=== PATIENT | female | born 1990 | race Caucasian/White ===

== ENCOUNTER 2016-12-05 18:58 | Emergency (ER) | payer OTHER ==
[~2016-12-05] VITALS: Ht 157.5 cm; Wt 93.0 kg
[~2016-12-05 18:58] MED LIST: PREN1TAB49
[2016-12-05 19:17] VITALS: Ht 157.5 cm; Wt 93.0 kg
--- NOTE | 2016-12-05 22:46 | RADRPT ---
PROCEDURE: XR Chest. CLINICAL INDICATION: Chest pain TECHNIQUE: Single frontal view of the chest was obtained. COMPARISON: None available FINDINGS: The cardiomediastinal silhouette is normal size. Pulmonary vasculature is within normal limits. Th e lungs are clear. No signs of pleural fluid or pneumothorax are seen. The osseous structures and soft tissues are unre markable. IMPRESSION: No evidence for active cardiopulmonary disease. RPTAT: HBST .Kieran Ku MD, MD Date Time Electronically viewed and signed by .Kieran Ku MD, MD on 12/05/2016 22:46 .T/
[2016-12-05] MEDS ORDERED: IBUP-1542 PO (22:56)
[2016-12-05] MEDS ORDERED: CEPH-443 PO (22:56)
--- NOTE | 2016-12-05 23:05 | ERD ---
ER Documentation Chief Complaint Date/Time DATE: 12/05/16 TIME: 23:00 Chief Complaint chest pain x 2 days on aND OFF HPI This is a 26-year-old female presents to the ER with chest pain for the last 2 days. Patient states that she does have shortness of breath. Patient states that she has some redness and swelling over her chest that is warm to the touch and painful. Has been nonexertional. It is worse whenever she touches the area. Patient denies any leg pain or leg swelling or redness. She denies any recent travel she does not take OCPs, she has not had a history of PEs or DVTs. Patient does not have any fevers or chills. She has had a stuffy nose hypertension denies of cough. ROS 12 point review of systems was done, all negative except per HPI. Medications Home Meds Active Scripts Ibuprofen* (Motrin*) 600 Mg Tab, 600 MG PO Q6, #30 TAB Prov:FELICIAFLORIN C 12/05/16 Cephalexin* (Keflex*) 500 Mg Capsule, 500 MG PO BID for 7 Days, CAP Prov:FELICIA,FLORIN C 12/05/16 Reported Medications [None] No Conflict Check 02/15/12 Vits W-Ca,Fe,Fa(<1MG) () 1 Tab Tablet 01/31/12 Allergies Allergies: Coded Allergies: No Known Drug Allergies (Verified Allergy, 10/13/13) PMhx/Soc History of Surgery: Yes (D AND C 4 DAYS AGO) Anesthesia Reaction: No Hx Neurological Disorder: No Hx Respiratory Disorders: No Hx Cardiac Disorders: No Hx Psychiatric Problems: No Hx Miscellaneous Medical Probl: No Hx Alcohol Use: No Hx Substance Use: No Hx Tobacco Use: No Smoking Status: Never smoker Physical Exam Vitals Vital Signs Date Time Temp Pulse Resp B/P Pulse Ox O2 Delivery O2 Flow Rate FiO2 12/05/16 19:17 99.6 95 20 129/62 98 Physical Exam GENERAL: The patient is well developed and appropriate for usual state of health , in no apparent distress. HEENT: Atraumatic. CHEST: Clear to auscultation bilaterally. There are no rales, wheezes or rhonchi. HEART: Regular rate and rhythm. No murmurs, clicks, rubs or gallops. ABDOMEN: Soft, nontender and nondistended. Good bowel sounds. No rebound or guarding. No gross peritonitis. No gross organomegaly or masses. No Aguirre sign or McBurney point tenderness. No pulsatile masses. BACK: No midline or flank tenderness. NEURO: Alert and oriented. SKIN: 2 cm x 3 cm area of redness at the chest wall. Warm to the touch. Tender to palpation. Procedures/MDM Differential diagnosis includes but is not limited to; STEMI, dissection, pneumothorax, PE, esophageal rupture, tamponade, pneumonia, pericarditis, GERD, musculoskeletal, endocarditis, anxiety. At this time to related to area of cellulitis on chest wall. Chest pain is reproducible on physical examination. I doubt acute cardiac etiology. [address] elevation or T-wave inversion. EKG was read by . Patient is afebrile, well-appearing she is not tachycardic or hypoxic. Patient is to follow-up with her primary care doctor within 1-2 days or return to ER sooner if symptoms. My medical decision making was shared with the patient she understands and agrees with plan. Departure Diagnosis: Primary Impression: Cellulitis Additional Impression: Chest pain Condition: Stable Patient Instructions: Chest Pain, Uncertain Cause Additional Instructions: Call your primary care doctor TOMORROW for an appointment during the next 1-2 days.See the doctor sooner or return here if your condition worsens before your appointment time. FLORIN DUARTE December 05, 2016 23:05
[2016-12-05 23:15] VITALS: BP 126/80; PULSE 60; RESP 20; TEMP 99
== END 2016-12-05 23:16 | disposition home or self-care (01) ==
LOC: FTE 18:58
DX: L03.313 Cellulitis of chest wall (principal)
CPT/HCPCS: 71010; Z7502

== ENCOUNTER 2017-08-15 18:41 | Inpatient (IN) | END 2017-08-18 16:10 | disposition home or self-care (01) | DRG 418 ==

== ENCOUNTER 2017-09-04 12:52 | Outpatient (CLI) | END 2017-09-04 17:00 | disposition home or self-care (01) ==